=== PATIENT | female | born 1965 | race African-American/Black ===

== ENCOUNTER 2019-02-27 15:33 | Outpatient (CLI) | payer BC ==
--- NOTE | 2019-02-27 16:32 | MRI ---
MRI Lumbar Spine Noncontrast: HISTORY: Low back pain with pain radiating into bilateral hips. COMPARISON: None FINDINGS: The visualized retroperitoneal structures demonstrate a normal appearance. Conus medullaris is normal in morphology and terminates at the L2 level. L1-2: There is no disc bulge or disc herniation. Central spinal canal and neural foramina are patent. Facet hypertrophic changes are present. L2-3: There is no disc bulge or disc herniation. Central spinal canal and neural foramina are patent. Facet hypertrophic changes are present. L3-4: There is no disc bulge or disc herniation. Central spinal canal and neural foramina are patent. Facet hypertrophic changes are present. L4-5: There is no disc bulge or disc herniation. Central spinal canal and neural foramina are patent. Moderate facet hypertrophic changes are present. L5-S1: There is no disc bulge or disc herniation. Central spinal canal and neural foramina are patent . Moderate facet hypertrophic changes are present. IMPRESSION: No significant central canal or neural foraminal narrowing is seen at any level. Multilevel facet hyp ertrophic changes are seen.
== END 2019-02-27 15:34 | disposition home or self-care (01) ==
LOC: SCSMRI 15:33
PROVIDERS: ATTEND Neurological Surgery
DX: M54.16 Radiculopathy, lumbar region (principal); M54.5 Low back pain; M47.816 Spondylosis without myelopathy or radiculopathy, lumbar region; M47.817 Spondylosis without myelopathy or radiculopathy, lumbosacral region
CPT/HCPCS: 72148

== ENCOUNTER 2019-03-15 11:03 | Outpatient (CLI) | payer BC ==
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
== END 2019-03-15 11:04 | disposition home or self-care (01) ==
LOC: BICCT 11:03
PROVIDERS: ATTEND Neurological Surgery
DX: M47.26 Other spondylosis with radiculopathy, lumbar region (principal); M47.817 Spondylosis without myelopathy or radiculopathy, lumbosacral region; M48.07 Spinal stenosis, lumbosacral region
CPT/HCPCS: 72131

== ENCOUNTER 2020-01-22 15:05 | Outpatient (CLI) | payer BC ==
--- NOTE | 2020-01-22 15:29 | RAD ---
Exam: 2 views abdomen HISTORY: Hepatitis C. Right upper quadrant pain FINDINGS: Nonspecific bowel gas pattern. No suspicious densities in the abdomen or pelvis. No pneumop eritoneum. No differential air-fluid levels. No bowel distention or dilatation. Osseous structures do not demonstrate any acute abnormality. IMPRESSION: Nonspecific bowel gas pattern.
== END 2020-01-22 15:06 | disposition home or self-care (01) ==
LOC: BICRAD 15:05
PROVIDERS: ATTEND Internal Medicine Gastroenterology
DX: R10.11 Right upper quadrant pain (principal); Z86.19 Personal history of other infectious and parasitic diseases
CPT/HCPCS: 74019

== ENCOUNTER 2020-01-24 08:40 | Outpatient (CLI) | payer BC ==
--- NOTE | 2020-01-24 10:22 | ULT ---
HEPATIC ULTRASOUND WITH VASCULAR DUPLEX INCLUDING COLOR AND SPECTRAL DOPPLER IMAGING: Date: 01/24/2020 HISTORY: Hepatitis C, right upper quadrant pain. FINDINGS: Nonspecific coarse liver echogenicity. No focal liver masses. Common bile duct 0.3 cm. Visualized guevara creas and right kidney are unremarkable. Spleen is normal in size but somewhat heterogeneous in echog enicity. No evidence of gallstones, wall thickening, edema, or pericholecystic fluid. Antegrade hepatic venous and portal venous flow. IMPRESSION: Somewhat heterogeneous liver echogenicity, nonspecific. Antegrade hepatic and portal venous flow. Arie ewhat heterogeneous spleen echogenicity. POS: RRE
== END 2020-01-24 08:41 | disposition home or self-care (01) ==
LOC: SCSULT 08:40
PROVIDERS: ATTEND Internal Medicine Gastroenterology
DX: R10.11 Right upper quadrant pain (principal); R93.2 Abnormal findings on diagnostic imaging of liver and biliary tract; R93.3 Abnormal findings on diagnostic imaging of other parts of digestive tract; Z86.19 Personal history of other infectious and parasitic diseases
CPT/HCPCS: 76705

== ENCOUNTER 2021-06-10 06:56 | Outpatient (CLI) | payer BC ==
[2021-06-10] MEDS ORDERED: Magnevist 469MG/ML 20 ML VIAL ONE (10:09)
== END 2021-06-10 06:57 | disposition home or self-care (01) ==
LOC: BICMRI 06:56
PROVIDERS: ATTEND Nurse Practitioner Family
DX: R22.41 Localized swelling, mass and lump, right lower limb (principal); S83.241A Other tear of medial meniscus, current injury, right knee, initial encounter
CPT/HCPCS: A9579